=== PATIENT | female | born 1975 | race Caucasian/White ===

== ENCOUNTER 2019-04-15 15:14 | Outpatient (CLI) | payer OTHER ==
[~2019-04-15 15:14] MED LIST: BENADRYL25 MG PO; PEPCID40 MG PO
== END 2019-04-15 15:25 | disposition home or self-care (01) ==
LOC: RAD 15:14
DX: L02.11 Cutaneous abscess of neck (principal)

== ENCOUNTER 2019-08-02 15:52 | Outpatient (CLI) | payer OTHER | END 2019-08-02 16:09 | disposition home or self-care (01) | LOC: RAD 15:52 | PROVIDERS: ATTEND General Practice | DX: R05 Cough (principal) ==

== ENCOUNTER 2019-08-05 14:44 | Outpatient (CLI) | payer OTHER | END 2019-08-05 15:05 | disposition home or self-care (01) | LOC: MAMO-SONO 14:44 → SONOGRAMA 14:44 | PROVIDERS: ATTEND Obstetrics & Gynecology | DX: N60.01 Solitary cyst of right breast (principal); N94.5 Secondary dysmenorrhea ==

== ENCOUNTER 2020-01-02 23:24 | Emergency (ER) | payer OTHER ==
[~2020-01-02] VITALS: Ht 167.6 cm; Wt 70.3 kg
[2020-01-03] MEDS ORDERED: ZOFRAN8 M1 PO (03:39)
[2020-01-03] MEDS ORDERED: PEPCID40 MG PO (03:39)
[2020-01-03] MEDS ORDERED: BENADRYL25 MG PO (03:39)
== END 2020-01-03 03:53 | disposition home or self-care (01) ==
LOC: ER 23:24
DX: K29.60 Other gastritis without bleeding (principal); R11.11 Vomiting without nausea; L27.2 Dermatitis due to ingested food; T78.1XXA Other adverse food reactions, not elsewhere classified, initial encounter; X58.XXXA Exposure to other specified factors, initial encounter

== ENCOUNTER 2020-02-04 08:35 | Outpatient (CLI) | payer OTHER ==
[~2020-02-04 08:35] MED LIST changes: +ZOFRAN8 M1 PO
== END 2020-02-04 09:00 | disposition home or self-care (01) ==
LOC: SONOGRAMA 08:35
PROVIDERS: ATTEND Internal Medicine Gastroenterology
DX: K80.80 Other cholelithiasis without obstruction (principal); R10.13 Epigastric pain